=== PATIENT | female | born 1955 | race Caucasian/White ===

== ENCOUNTER → 2016-05-17 | Outpatient (CLI) | payer BC ==
--- NOTE | 2016-05-17 12:56 | P.HPIM ---
History of Present Illness H&P Date: 05/17/16 Chief Complaint: neck and left shoulder pain This is a 60-year-old patient referred by Dr. Stevens for chronic pain in neck pain and left shoulder, denies numbness/tingling in upper extremities. Patient has been taking medications from primary care physician including tramadol, naproxen, Tylenol medications with some relief. Patient denies adverse drug effects from medications. Patient also denies new-onset weakness, bowel/ bladder incontinence, or any other signs or symptoms of cauda equina syndrome. There are no signs of acute intoxication, and no indications of medication diversion or overuse. Patient notes that pain worsens significantly with neck extension, and improves with rest, ice, and medication. Patient has used several types of medications for pain, including NSAIDS, TRAMADOL, ANTIDEPRESSANTS. Patient HAS NOT had surgery. Patient HAS NOT had injections previously. Patient HAS NOT had physical therapy recently. In addition to above, 13-point review of systems is also negative for chest pain , shortness of breath, changes in vision, changes in hearing, new onset weakness , abdominal pain, diarrhea, extreme fatigue, malaise, fever, skin changes, homicidal or suicidal ideation, or bowel or bladder incontinence. Vital Signs: Reviewed in EMR Gen: WDWN, AAOx3, NAD HEENT: NCAT, EOMI, hearing grossly normal Pulm: resp unlabored Abd: soft, NT, ND Neck: supple, trachea midline ROM in flexion cervical spine: reduced ROM in extension cervical spine: reduced Cervical paravertebral tenderness: + L side >> R side Cervical Facet tenderness: +L side >> R side Spurling's: neg bilateral Upper extremity: strength preserved Neuro: CN II-XII grossly intact Past Medical History Past Medical History: Fibromyalgia, Hyperlipidemia, Hypertension History of Any Multi-Drug Resistant Organisms: None Reported Past Surgical History: Cholecystectomy, Hysterectomy Additional Past Surgical History / Comment(s): left breast cyst removal - 1978. Pins in jaw - osteotomy of mandible Past Psychological History: Depression Smoking Status: Never smoker Past Alcohol Use History: None Reported Past Drug Use History: None Reported Medications and Allergies Home Medications Medication Instructions Recorded Confirmed Type Benazepril HCl 40 mg PO DAILY 12/10/14 05/17/16 History Hydrochlorothiazide 25 mg PO DAILY 12/10/14 05/17/16 History Multivitamins, Thera [Theragran] 1 each PO DAILY@1200 12/10/14 05/17/16 History Naproxen Sodium [Aleve] 440 mg PO DAILY 12/10/14 05/17/16 History Simvastatin [Zocor] 20 mg PO HS 12/10/14 05/17/16 History Verapamil HCl [Verapamil ER] 240 mg PO DAILY 12/10/14 05/17/16 History Acetaminophen Tab [Tylenol Tab] 500 mg PO Q6H 05/17/16 05/17/16 History Ascorbic Acid [Vitamin C] 250 mg PO DAILY 05/17/16 05/17/16 History Cholecalciferol [Vitamin D3] 1,000 unit PO DAILY 05/17/16 05/17/16 History Ciprofloxacin HCl [Cipro] 500 mg PO Q12HR 05/17/16 05/17/16 History Cyanocobalamin [Vitamin B-12] 1,000 mcg PO DAILY 05/17/16 05/17/16 History Famotidine [Pepcid] 20 mg PO HS 05/17/16 05/17/16 History Fluticasone Nasal [place] [Flonase 1 spray EA NOSTRIL DAILY 05/17/16 05/17/16 History Nasal [place]] Melatonin 15 mg PO HS 05/17/16 05/17/16 History Menthol [Biofreeze] 1 applic TOPICAL HS 05/17/16 05/17/16 History [place]-3 Fatty Acids/Fish Oil [Fish 2,000 mg PO DAILY 05/17/16 05/17/16 History Oil 1,000 mg Softgel] traMADol HCL [Ultram] 50 mg PO HS PRN 05/17/16 05/17/16 History Allergies Allergy/AdvReac Type Severity Reaction Status Date / Time red dye Allergy Rash/Hives Verified 05/17/16 12:04 Sulfa (Sulfonamide Allergy Rash/Hives Verified 05/17/16 12:04 Antibiotics) Physical Exam Vitals: Vital Signs Temp Pulse Resp BP 05/17/16 12:22 98.2 F 73 16 140/75 Intake and Output 05/16/16 05/17/16 05/17/16 22:59 06:59 14:59 Other: Weight 105.687 kg Patient Weight 05/18/16 06:59 Weight 105.687 kg Results Comments: MRI cervical spine dated 03/03/2016 demonstrates hypertrophic changes of the facets and uncovertebral hypertrophy at essentially every level of the cervical spine. There are posterior disc bulges at the C4-C5 C5-C6 and C6-C7 levels. There is left-sided foraminal encroachment at C4-C5 level with probable nerve root impingement and spinal canal stenosis at this level as well. There is severe spinal canal stenosis at the C5-C6 level and some compression of the thecal sac with the facets at the C6-C7 level. There is also degenerative disc disease throughout the cervical spine. Assessment and Plan (1) Cervical spondylosis without myelopathy Status: Chronic (2) Neural foraminal stenosis of cervical spine Status: Chronic Plan: 1. Explanation: Opioid and psychological risk scores were reviewed. Diagnoses , prognoses, and multiple treatment options including but not limited to physical therapy, interventional therapies, adjuvant medical therapies, narcotic medication therapies, and surgery were discussed with the patient and all questions were answered to the patient's satisfaction. 2. Opioid agreement: no opioids prescribed today 3. Counseling: The patient was counseled extensively on SMOKING CESSATION, BODY MASS INDEX, EXERCISE. Specifically, the patient was instructed regarding the importance of smoking cessation, obesity, and exercise in the context of both chronic pain and overall health. 4. Procedures: left cervical MBB (lower facets if possible given pain's referral to shoulder) 5. Consultations: none 6. Investigations: none 7. Medications: none 8. Disposition: f/u for procedure as scheduled PQRS measures: 1-Patient's medications are documented in the chart. 2-Tobacco use is negative 3-Patient has not had a pneumococcal vaccine. 4-Advanced care planning discussed, patient unable to give. 5-Opioid contract NOT signed with the patient as no opioids prescribed. 6-Pain positive, follow-up visit or procedure scheduled 7-Patient's blood pressure measured and documented, and patient will follow up with the primary care due to hypertension. 8-Patient's weight was measured, and body mass index ABOVE the normal limits, and counseling was done. Patient instructed to follow up with PCP. 9-Patient WAS NOT identified as an unhealthy alcohol user. Time with Patient: Greater than 30
== END | disposition home or self-care (01) ==
CPT/HCPCS: 99211

== ENCOUNTER 2016-05-28 06:45 | Day surgery (SDC) | payer BC ==
[2016-05-23 15:07] VITALS: BMI 39.6
[2016-05-28] MEDS ORDERED: LIDOCAINE 1% 20 ML VIAL (10MG/ML) FOR IV START INTRADERMA ONE (06:57)
[2016-05-28 07:02] VITALS: RESP 16; TEMP 96.2
[2016-05-28] MEDS ORDERED: LACTATED RINGERS 1,000 ML IV ONE (07:06)
[2016-05-28] MEDS ORDERED: MIDAZOLAM 2 MG/2 ML VIAL ONE (08:08)
[2016-05-28] MEDS ORDERED: BUPIVACAINE (PF) 0.5% 30 ML VIAL ONE (08:08)
[2016-05-28] MEDS ORDERED: LACTATED RINGERS 1,000 ML IV SCH (08:15)
--- NOTE | 2016-05-28 08:39 | P.PCN ---
Date of Procedure: 05/28/16 Preoperative Diagnosis: Cervical spondylosis without myelopathy Postoperative Diagnosis: Cervical spondylosis without myelopathy Procedure(s) Performed: Left cervical medial branch block at C4, C5, and C6 levels. Anesthesia: MAC Surgeon: Leah Mendiola Pathology: none sent Condition: stable Disposition: PACU Description of Procedure: The patient was seen in preop holding area consent was obtained then she was brought into the procedure room. The patient's first was placed in the prone position however the lateral view of fluoroscopy did not show the lower levels of her cervical spine because of the shoulders shadowing . The patient then was placed in the supine position and I was able to identify levels C4, C5, and C6 however I was not able to see level C7 because of the patient's body habitus . The target points were the center of the trapezoid shaped articular pillars of C4, C5, and C6. I used 22-gauge 3-1/2 inch Quincke spinal needles for this procedure and after contacting bone at these levels I injected 1 mL of Marcaine 0.5%. I did not give her any steroids or any IV fentanyl for this procedure. Patient tolerated procedure well.
[2016-05-28] MEDS ORDERED: IV FLUID CONTINUATION 1,000 ML IV ONE (08:42)
--- NOTE | 2016-05-28 08:45 | FL ---
EXAMINATION TYPE: FL guided pain mgmt statistic DATE OF EXAM: 05/28/2016 8:39 AM HISTORY: Pain Left Cervical Facet.10 sec fluoro time. 1 Image scanned.
[2016-05-28 09:14] VITALS: BP 120/76; PULSE 74
== END 2016-05-28 09:35 | disposition home or self-care (01) ==
LOC: ORPAIN 06:45
PROVIDERS: ATTEND Anesthesiology
DX: M47.812 Spondylosis without myelopathy or radiculopathy, cervical region (principal); I10 Essential (primary) hypertension; Z88.2 Allergy status to sulfonamides
CPT/HCPCS: 64490; 64491; 64492; J2250

== ENCOUNTER → 2016-06-13 | Outpatient (CLI) | payer BC ==
--- NOTE | 2016-06-14 08:10 | MM ---
Reason for exam: screening (asymptomatic). Last mammogram was performed 1 year ago. History: Patient is postmenopausal. Cancelled Right Mammotome of the right breast, December 19, 2007. Benign cyst aspiration of the left breast, 1978. Took estrogen for 2 years beginning at age 48. Physical Findings: A clinical breast exam by your physician is recommended on an annual basis and results should be correlated with mammographic findings. MG Screening Mammo w CAD Bilateral CC and MLO view(s) were taken. Prior study comparison: June 03, 2015, bilateral MG screening mammo w CAD. November 05, 2011, bilateral digital screening mammo w/CAD. There are scattered fibroglandular densities. No significant changes when compared with prior studies. ASSESSMENT: Benign, BI-RAD 2 RECOMMENDATION: Routine screening mammogram of both breasts in 1 year.
== END | disposition home or self-care (01) ==
LOC: RADMAMWWP 10:15
PROVIDERS: ATTEND Internal Medicine
DX: Z12.31 Encounter for screening mammogram for malignant neoplasm of breast (principal)

== ENCOUNTER 2016-06-21 11:21 | Day surgery (SDC) | payer BC ==
[2016-06-20 11:20] VITALS: BMI 39.6
[~2016-06-21 11:21] MED LIST: LACTATED RINGERS 1,000 ML IV SCH
[2016-06-21 12:00] VITALS: RESP 16; TEMP 98.3
[2016-06-21] MEDS ORDERED: LIDOCAINE 1% 20 ML VIAL (10MG/ML) FOR IV START SQ ONE (12:15)
[2016-06-21] MEDS ORDERED: DEXAMETHASONE SOD PHOS (MDV) 100 MG/10 ML VIAL ONE (12:39)
[2016-06-21] MEDS ORDERED: MIDAZOLAM 2 MG/2 ML VIAL ONE (12:39)
[2016-06-21] MEDS ORDERED: BUPIVACAINE (PF) 0.5% 30 ML VIAL ONE (12:39)
[2016-06-21] MEDS ORDERED: IV FLUID CONTINUATION 600 ML IV ONE (13:13)
--- NOTE | 2016-06-21 13:15 | FL ---
EXAMINATION TYPE: FL guided pain mgmt statistic DATE OF EXAM: 06/21/2016 1:10 PM CLINICAL HISTORY: Neck pain. TECHNIQUE: Fluoroscopy. COMPARISON: None. FINDINGS: Fluoroscopic guidance was provided during pain relief procedure performed by Dr. Vanessa. A total of 25 seconds of fluoroscopic time was utilized during the procedure and two spot images are a cquired. Images acquired shows needle localization at level of the lower cervical spine. IMPRESSION: As Above.
--- NOTE | 2016-06-21 13:18 | P.PCN ---
Date of Procedure: 06/21/16 Surgeon: Romaine Vanessa Pathology: none sent Condition: stable Disposition: PACU Description of Procedure: PREOPERATIVE DIAGNOSIS: Cervical spondylosis without myelopathy, cervicogenic headache. POSTOPERATIVE DIAGNOSIS: same PROCEDURES: Diagnostic left C4, C5, C6 medial branch block and steroid injection , with fluoroscopic guidance ANESTHESIA: Local with 1% lidocaine; conscious sedation EBL: Minimal PROCEDURE INDICATION: This is a patient with neck pain and headaches secondary to cervical arthropathy unresponsive to more conservative treatments. Patient with > 80% relief x 2.5 weeks from first cervical MBB performed by Dr. Mendiola at last visit. No use of anticoagulants. PROCEDURE DESCRIPTION / TECHNIQUE: The patient was seen and identified in the preoperative area. Risks, benefits, complications, and alternatives were discussed with the patient (including but not limited to incomplete pain relief , bleeding, infection, nerve damage, and allergies to medications), the patient agreed to proceed with the procedure and signed the consent after all questions were answered. IV was started. Vital signs remained stable throughout the procedure. Patient was taken to the OR and time out was completed. The patient was placed in the supine position on the procedure table. The lateral cervical area was prepped and draped in the usual sterile fashion. Critical pause was taken. Vital signs were closely monitored during the procedure. Conscious sedation was used during the procedure to decrease patients anxiety. Using cross-table lateral fluoroscopy, the centroid of the trapezoid of left C4 , was identified, marked, and localized with 1% lidocaine. Subsequently, a 25 G spinal needle was advanced guided by fluoroscopy to the centroid of the trapezoid of C43. Needle tip position was confirmed at the centroid of the trapezoid of C4 with anteroposterior fluoroscopy. Subsequently, 1 ml of a combination of 10 mg Decadron and 2 ml of preservative-free Bupivacaine 0.5% was injected after negative aspiration for blood and CSF. Needle was then withdrawn slightly and brought to the centroid of the trapezoid of C5 in a similar fashion. 1 ml of the mixture was injected here after negative aspiration. After this, the needle was similarly withdrawn and brought to the centroid of the trapezoid of C6 and the last 1 ml was injected here. Needle was withdrawn intact, skin was cleansed, and bandages were applied. COMPLICATIONS: No acute complications. COMMENTS: DISPOSITION / PLANS: The patient was placed in a supine position and transferred to the recovery area in a stable condition for observation and was discharged from the recovery room after meeting discharge criteria. Home discharge instructions given to the patient by the staff. The patient was reexamined prior to discharge. The patient will schedule a follow up in the clinic in 2-4 weeks. Patient had excellent relief from first MBB done by Dr. Mendiola without steroids. I decided to use Decadron today to see if I could give the patient more extended relief without doing RFA, which will be challenging due to her very short neck and large body habitus.
[2016-06-21 13:51] VITALS: BP 141/81; PULSE 66
== END 2016-06-21 13:53 | disposition home or self-care (01) ==
LOC: ORPAIN 11:21
PROVIDERS: ATTEND Anesthesiology
DX: M47.812 Spondylosis without myelopathy or radiculopathy, cervical region (principal); R51 Headache
CPT/HCPCS: 64490; 64491; 64492; 99152; J2250; J1100

== ENCOUNTER → 2016-07-23 | Outpatient (CLI) | payer BC ==
[2016-07-23 14:56] VITALS: BP 140/77; PULSE 74; RESP 16; TEMP 98.2
--- NOTE | 2016-07-23 15:33 | P.PN ---
Progress Note - Text This is a 66-year-old old lady with history of fibromyalgia, multiple sites of arthritis and left neck pain due to cervical spondylosis. The patient received 2 cervical medial branch blocks for levels C4, C5, and C6 and she still has very good pain relief after these injections. At this point I would like to postpone doing the radio frequency ablation until her pain comes back or gets worse in intensity and then we can plan on doing the radiofrequency ablation for levels C4, C5, and C6 under fluoroscopic guidance on the left side. For now the patient is to continue using ibuprofen as needed for her pain.
== END ==
LOC: PNWHC3 14:17
PROVIDERS: ATTEND Anesthesiology
DX: M47.812 Spondylosis without myelopathy or radiculopathy, cervical region (principal)
CPT/HCPCS: 99211

== ENCOUNTER → 2017-04-30 | Outpatient (CLI) | payer BC, OTHER ==
--- NOTE | 2017-04-30 14:41 | P.PN ---
Subjective Progress Note Date: 04/30/17 This is follow-up visit for this patient with a history of severe and chronic neck pain secondary to cervical degenerative disc diseases , cervical spondylosis with facet arthropathy, we have done a couple medial branch block on the left side cervical area and she had a good result , able to have radiofrequency ablation of the left side medial branch cervical area , could not do the radiofrequency because not able to visualize C5 or C6 vertebra , and the procedure was converted to cervical epidural steroid injections . Physical Examinations : 1-Constitutiona : Cooperative , not in acute distress . 2-HEENT : nech ; supple , no Lymphadenopathy , no Thyromegaly , normal thyroid size . eyes : no ptosis , no icterus, no photophobia . ENT : normal of hearing , normal oropharynx , no Thrush . 3- Respiratory : Chest clear to auscultations Bilaterally , no wheezing , no Rhonchi . 4- Cardiovascular : regular rate and rhythem , S1 , S2 , no S3 , no S4. 5- Gastrointestinal : abdomen soft no tenderness , bowel sounds positive all four quadrents , no organomegally . 6- Genitourinary : Defferred . 7- neurologic : Cranial nerve II to XII intact , no focal neurological deffecit . 8-psychatric : alert , oriented X 3 , appropriate affect , intact judgment and insight . 9-Lymphatic : no Lymphadenopathy . 10- musculoskeltal : exams of the cervical spine = motor strength normal bilateral upper extremities facet loading test cervical area positive. Assessment and plan = Cervical spondylosis with cervical facet arthropathy without myelopathy and cervical degenerative disc disease ,cervical foraminal stenosis she had good results after the diagnostic medial branch block but I could not proceed with the radiofrequency ablation of the medial branches , it would be good candidate to have a trial date radiofrequency ablation of the medial branch cervical ,to be schedualed with one my partners that they have done the procedure for her in the past , Patient reported that her pain is not very bad now and she is concerned about the copayment for this reason she will schedule the procedure in the future when her pain intensity increased and she will be scheduled to have radiofrequency ablation of the medial branch cervical area with Dr. Vanessa or with Dr. Mendiola Objective - Vital Signs Vital signs: Vital Signs Temp Pulse 100 04/30/17 13:32 Resp 18 04/30/17 13:32 BP 127/63 04/30/17 13:32 Pulse Ox 96 04/30/17 13:32 Intake & Output 04/29/17 04/30/17 04/30/17 18:59 06:59 18:59 Weight 106.141 kg
[2017-05-01 23:05] VITALS: BP 127/63; PULSE 100; RESP 18
== END | disposition home or self-care (01) ==
LOC: PNWHC3 13:14
PROVIDERS: ATTEND Specialist
DX: G89.29 Other chronic pain (principal); M99.71 Connective tissue and disc stenosis of intervertebral foramina of cervical region; M50.30 Other cervical disc degeneration, unspecified cervical region; M47.812 Spondylosis without myelopathy or radiculopathy, cervical region; M46.82 Other specified inflammatory spondylopathies, cervical region
CPT/HCPCS: 99211

== ENCOUNTER → 2017-05-16 | Outpatient (CLI) | payer OTHER ==
--- NOTE | 2017-05-17 09:29 | ECHOF ---
Referral Reason:I50 Heart failure MEASUREMENTS -------- HEIGHT: 162.6 cm WEIGHT: 108.0 kg BP: LAESV Index (A-L): 11.87 ml/m Ao Diam: 3.4 cm (2.0 - 3.7) AV Cusp: 1.9 cm (1.5 - 2.6) LA Diam: 3.7 cm (2.7 - 3.8) MV E Herb: 0.63 m/s MV DecT: 288 ms MV A Herb: 0.73 m/s MV E/A Ratio: 0.85 FINDINGS -------- Sinus rhythm. This was a technically difficult study with suboptimal views. The left ventricular size is normal. Overall left ventricular systolic function is normal with, an EF between 55 - 60 %. The right ventricle is normal in size and function. Normal LA size by volume 22+/-6 ml/m2. The right atrium is normal in size. 1.5mg of Definity was utilized for enhancement of images The aortic valve is trileaflet, and appears structurally normal. No aortic stenosis or regurgitation. The mitral valve leaflets are mildly thickened. There is trace to mild mitral regurgitation. Trace tricuspid regurgitation present. Right ventricular systolic pressure is normal at < 35 mmHg. There is no evidence of pulmonary hypertension. The pulmonic valve was not well visualized. The aortic root size is normal. Normal inferior vena cava with normal inspiratory collapse consistent with estimated right atrial pre ssure of 5 mmHg. The pericardium is normal. There is no pericardial effusion. CONCLUSIONS -------- 1. Sinus rhythm. 2. This was a technically difficult study with suboptimal views. 3. The left ventricular size is normal. 4. Overall left ventricular systolic function is normal with, an EF between 55 - 60 %. 5. Normal LA size by volume 22+/-6 ml/m2. 6. 1.5mg of Definity was utilized for enhancement of images 7. The aortic valve is trileaflet, and appears structurally normal. No aortic stenosis or regurgitati on. 8. The mitral valve leaflets are mildly thickened. 9. There is trace to mild mitral regurgitation. 10. Trace tricuspid regurgitation present. 11. Right ventricular systolic pressure is normal at < 35 mmHg. 12. There is no evidence of pulmonary hypertension. 13. The pulmonic valve was not well visualized. 14. The aortic root size is normal. 15. There is no pericardial effusion. [employer]ER [employer]: Dustin Spann RDCS
== END | disposition home or self-care (01) ==
LOC: RADECHMAIN 15:40
PROVIDERS: ATTEND Internal Medicine
DX: I08.1 Rheumatic disorders of both mitral and tricuspid valves (principal); I50.9 Heart failure, unspecified
CPT/HCPCS: 93306

== ENCOUNTER → 2017-10-31 | Outpatient (CLI) | payer OTHER ==
--- NOTE | 2017-11-04 10:29 | MM ---
Reason for exam: screening (asymptomatic). Last mammogram was performed 1 year and 5 months ago. History: Patient is postmenopausal. Cancelled Right Mammotome of the right breast, December 19, 2007. Benign cyst aspiration of the left breast, 1978. Took estrogen for 2 years beginning at age 48. Physical Findings: A clinical breast exam by your physician is recommended on an annual basis and results should be correlated with mammographic findings. MG 3D Screening Mammo W/Cad Bilateral CC, MLO, and CV view(s) were taken. Technologist: RT Bronson (R)(M) Prior study comparison: June 13, 2016, bilateral MG screening mammo w CAD. June 03, 2015, bilateral MG screening mammo w CAD. There are scattered fibroglandular densities. There is chronic nodularity in the left breast. Stable medial right breast asymmetric density. No significant changes when compared with prior studies. ASSESSMENT: Negative, BI-RAD 1 RECOMMENDATION: Routine screening mammogram of both breasts in 1 year.
== END | disposition home or self-care (01) ==
LOC: RADMAMWWP 09:12
PROVIDERS: ATTEND Internal Medicine
DX: Z12.31 Encounter for screening mammogram for malignant neoplasm of breast (principal)
CPT/HCPCS: 77063; 77067

== ENCOUNTER 2018-04-09 06:11 | Day surgery (SDC) | payer OTHER ==
[2018-04-07 16:36] VITALS: BMI 40.3
[2018-04-09 06:43] VITALS: TEMP 97.6
[2018-04-09] MEDS ORDERED: LACTATED RINGERS 1,000 ML IV ONE (06:54)
[2018-04-09] MEDS ORDERED: SODIUM CHLORIDE 0.9% 500 ML 500 ML IV SCH (07:00)
[2018-04-09] MEDS ORDERED: IV FLUID CONTINUATION 1,000 ML IV ONE ×2 (07:24)
[2018-04-09 07:27] VITALS: RESP 16
--- NOTE | 2018-04-09 07:27 | P.PCN ---
Date of Procedure: 04/09/18 Surgeon: Dada Cruz Description of Procedure: PREOPERATIVE DIAGNOSIS: Cervical radiculopathy Cervical degenerative disc disease POSTOPERATIVE DIAGNOSIS: Cervical radiculopathy Cervical degenerative disc disease PROCEDURE Cervical Epidural steroid injection under fluoroscopic guidance at the C7-T1 interspace. ANESTHESIA: Local with 1% lidocaine 3 ml and IV sedation with Versed 2 mg EBL: Minimal PROCEDURE INDICATION: The patient with cervical radicular symptoms unresponsive to conservative treatment. She is undergone one previous cervical epidural steroid injection reported that this helped her pain significant only. She has pain in her neck as well as down her right arm. PROCEDURE DESCRIPTION / TECHNIQUE: The patient was seen and identified in the preoperative area. Risks, benefits , complications including but not limited to infections ,bleeding ,allergic reaction to the medications ,nerve damage and incomplete pain relief, and alternatives were discussed with the patient. The patient agreed to proceed with the procedure and signed the consent. IV was started, and vital signs were stable. Patient was taken to the OR and time out was completed. The patient was placed in the prone position on procedure table and a pillow was placed under the chest area.. The cervical area was prepped and draped in the usual sterile fashion. Conscious sedation was used during the procedure to decrease patient s anxiety. Vital signs was monitered during the entire procedure. Using anterior-posterior fluoroscopy, the C7-T1 interlaminar space was identified and the skin over this site was marked and then infiltrated with 1% lidocaine subcutaneously. Subsequently, a 20-gauge Tuohy epidural needle was inserted and advanced toward the epidural space using the loss of resistance technique and guided by AP and lateral fluoroscopy. The correct needle position in the epidural space was verified with the injection of contrast and observing an excellent epidurogram with the epidural spread of the dye, after negative aspiration for blood and CSF and in the absence of paresthesias. Again after negative aspiration, a 4 ml mixture containing 20 mg of Dexamethasone was injected. Needle was withdrawn intact, skin was cleansed, and bandages were applied. COMPLICATIONS: None DISPOSITION / PLANS: The patient was placed in a supine position and transferred to the recovery area in a stable condition for observation. There was no evidence of lower extremity motor or sensory deficit after the procedure. Patient was discharged from the recovery room after meeting discharge criteria. Home discharge instructions were given to the patient by the staff. The patient was reexamined prior to discharge. She will follow-up for her third cervical epidural steroid injection on an as-needed basis.
[2018-04-09 07:39] VITALS: BP 130/78; PULSE 74
--- NOTE | 2018-04-09 08:52 | FL ---
EXAMINATION TYPE: FL guided pain mgmt statistic DATE OF EXAM: 04/09/2018 COMPARISON: NONE HISTORY: Neck pain. Fluoroscopy documentation. TECHNIQUE: Fluoroscopy. FINDINGS/IMPRESSION: Fluoroscopic guidance was provided during procedure performed by Dr. Cruz. A total of 2 seconds of fluoroscopic time was utilized during the procedure and 1 spot images was acqu ired demonstrating localization of the cervical spine.
== END 2018-04-09 08:05 | disposition home or self-care (01) ==
LOC: ORPAIN 06:11
PROVIDERS: ATTEND Pain Medicine Pain Medicine
DX: M50.10 Cervical disc disorder with radiculopathy, unspecified cervical region (principal); I10 Essential (primary) hypertension; M79.7 Fibromyalgia; M19.90 Unspecified osteoarthritis, unspecified site; Z79.1 Long term (current) use of non-steroidal anti-inflammatories (NSAID); Z88.2 Allergy status to sulfonamides
CPT/HCPCS: 62321; J2250; J1100; 99152

== ENCOUNTER → 2018-05-27 | Outpatient (CLI) | payer BC, OTHER ==
[2018-05-27 12:15] VITALS: BP 170/82; PULSE 94; RESP 16
--- NOTE | 2018-05-27 12:40 | P.PN ---
Subjective Progress Note Date: 05/27/18 Principal diagnosis: Cervical spondylosis without myelopathy This is a 62-year-old lady with chronic history of neck pain. The patient had 2 cervical epidural steroid injection recently which improved her left shoulder blade pain however she did report that a year ago she had cervical medial branch block which gave her better improvements in her neck pain and lasted for about one year even though it was a diagnostic procedure not a therapeutic one. Her pain gets worse by bright rotation of the cervical spine. She feels this pain on the left side of her cervical spine with radiation to the left shoulder area. By physical exam she has tenderness in the left cervical paravertebral musculature. Neuro exam of the upper extremities showed normal and symmetrical biceps reflexes but absent triceps reflexes bilaterally. She has normal muscle strength in the upper extremities. Since the patient had better results after the diagnostic cervical medial branch block which she had about a year ago I will schedule her for left cervical medial branch block under fluoroscopic guidance for levels C4, C5, and C6. The patient would hold her ibuprofen for 24 hours before the procedure The procedure will be done in the prone position at least twice to rule out false positive results. The patient's questions were answered and she was agreeable to the above mentioned procedure. Objective - Vital Signs Vital signs: Vital Signs Temp Pulse 94 05/27/18 12:11 Resp 16 05/27/18 12:11 BP 170/82 05/27/18 12:11 Pulse Ox 92 L 05/27/18 12:11 Intake & Output 05/26/18 05/27/18 05/27/18 18:59 06:59 18:59 Weight 108.862 kg
== END ==
LOC: PNWHC3 11:50
PROVIDERS: ATTEND Anesthesiology
DX: G89.29 Other chronic pain (principal); M54.2 Cervicalgia; Z79.891 Long term (current) use of opiate analgesic; Z79.899 Other long term (current) drug therapy
CPT/HCPCS: 99211

== ENCOUNTER 2018-06-23 07:35 | Day surgery (SDC) | payer BC ==
[2018-06-19 15:53] VITALS: BMI 41.1
[~2018-06-23 07:35] MED LIST changes: -LACTATED RINGERS 1,000 ML IV SCH; +SODIUM CHLORIDE 0.9% 500 ML 500 ML IV SCH
[2018-06-23 08:12] VITALS: RESP 16; TEMP 96.9
[2018-06-23] MEDS ORDERED: LACTATED RINGERS 1,000 ML IV ONE (08:12)
[2018-06-23 08:20] LABS: Glucose,Whole Blood 111 mg/dL (75-99)
--- NOTE | 2018-06-23 09:19 | P.PCN ---
Date of Procedure: 06/23/18 Surgeon: Leah Mendiola Pathology: none sent Condition: stable Disposition: PACU Description of Procedure: PREOPERATIVE DIAGNOSIS: Cervical Spondylosis with Facet Arthropathy.without myelopathy POSTOPERATIVE DIAGNOSIS: Cervical Spondylosis Facet Arthropathy. Without myelopathy PROCEDURES: Diagnostic Left C3,4,5 medial branchs block with fluoroscopic guidance ANESTHESIA: Local with 1% lidocaine; IV sedation with Versed. EBL: Minimal PROCEDURE INDICATION: The patient with neck pain secondary to cervical arthropathy unresponsive to more conservative treatments. PROCEDURE DESCRIPTION / TECHNIQUE: The patient was seen and identified in the preoperative area. Risks, benefits, complications, and alternatives were discussed with the patient, the patient agreed to proceed with the procedure and signed the consent. IV was started. Vital signs remained stable throughout the procedure. Patient was taken to the OR and time out was completed. The patient was placed in the supine position on the procedure table. . The cervical area was prepped with chloraprep and draped in the usual sterile fashion. Critical pause was taken. Vital signs were closely monitored during the procedure. Conscious sedation was used during the procedure to decrease patients anxiety. I was not able to identify level C6 and C7 due to the patient's body habitus. Using cross-table lateral fluoroscopy, the center of the trapezoid of C3,4,and C5 was identified, marked, and localized with 1% lidocaine 1 ml at each level for skin and Sub Q infiltrations . Subsequently, a 25 G 3.5 inch spinal needle was advanced guided by fluoroscopy to the center of the trapezoid of C3,4,5 . Subsequently, 0.5 ml of preservative-free Bupivacaine 0.5% was injected at each level after negative aspiration for blood and CSF. No steroids were used for this procedure and no IV fentanyl either. COMPLICATIONS: No acute complications. COMMENTS: DISPOSITION / PLANS: The patient was placed in a supine position and transferred to the recovery area in a stable condition for observation and was discharged from the recovery room after meeting discharge criteria. Home discharge instructions given to the patient by the staff. The patient was reexamined prior to discharge. The patient will schedule a follow up in the clinic in 2-4 weeks.
--- NOTE | 2018-06-23 09:27 | FL ---
EXAMINATION TYPE: FL guided pain mgmt statistic DATE OF EXAM: 06/23/2018 CLINICAL HISTORY: Neck pain. TECHNIQUE: Fluoroscopy. COMPARISON: None. FINDINGS: Fluoroscopic guidance was provided during pain relief procedure performed by Dr. Mendiola . A total of 21 seconds of fluoroscopic time was utilized during the procedure and 3 spot images are acquired. Images acquired shows needle localization at few levels in the upper to mid cervical spine . IMPRESSION: As Above.
[2018-06-23 09:36] VITALS: PULSE 78
[2018-06-23 09:41] VITALS: BP 141/78
[2018-06-23] MEDS ORDERED: IV FLUID CONTINUATION 1,000 ML IV ONE (09:42)
--- NOTE | 2018-06-25 16:04 | CDI ---
Outpatient Documentation Clarification Form Date: 06/25/18 CDS/Pasteurizer Helper Name: Lidia Palacios Phone: If any questions, call Kiara Spann Talent Acquisition Relationship Manager at [phone] Patient Name: Genesis Red Admit Date: 06/23/18 Discharge Date: 06/23/18 ATTENTION: The [facility] Coding Staff appreciate your assistance in clarifying documentation. Please respond to the clarification below the line at the bottom and electronically sign. The [facility] Coding staff will review the response and follow-up if needed. Please note: Queries are made part of the Legal Health Record. If you have any questions, please contact the Talent Acquisition Relationship Manager. Dear Dr. Mendiola, How many levels and which levels were injected? Levels must be documented in the following fashion: C3-C4, C4-C5, for example. C3,4,5 could be interpreted to mean anywhere from 2 to 4 different spinal levels. Thank you for your kind consideration. MTDD
== END 2018-06-23 09:52 | disposition home or self-care (01) ==
LOC: ORPAIN 07:35
PROVIDERS: ATTEND Anesthesiology
DX: M47.812 Spondylosis without myelopathy or radiculopathy, cervical region (principal)
CPT/HCPCS: 64490; 64491; 64492; J2250; 99152

== ENCOUNTER → 2018-10-10 | Outpatient (CLI) | payer BC ==
--- NOTE | 2018-10-10 12:04 | MR ---
EXAMINATION TYPE: MR lumbar spine wo con DATE OF EXAM: 10/10/2018 COMPARISON: Plain film dated 04/18/2015 HISTORY: Low back pain TECHNIQUE: Multiplanar, multisequence images of the lumbar spine were acquired. L1-L2: Mild posterior disc bulge causes slight anterior mass effect on the thecal sac, disc extends c ircumferentially to cause some minimal encroachment on the foramina. L2-L3: Posterior broad-based disc bulge somewhat eccentric towards the right causing some anterolater al mass effect on the thecal sac. Circumferential extension of disc material encroaches minimally on the right neural foramen. L3-L4: Minimal anterolisthesis grade 1. Facet arthropathy with hypertrophic changes of the facets not ed. No significant central stenosis or foraminal encroachment. L4-L5: Facet arthropathy with hypertrophy ligamentum flavum is noted. No significant central stenosis or foraminal encroachment. No disc herniation. L5-S1: There is some facet arthropathy changes. No significant central stenosis. No disc herniation. No definite foraminal encroachment. Lumbar segments are intact. No paraspinal masses are identified. Conus medullaris has a normal appe arance. Lumbar vertebral bodies show preserved height. There is mild multilevel spondylosis. Minimal endplate discogenic marrow signal changes are present. Some loss of disc signal and disc height is co mpatible with mild desiccation, degenerative disc disease greatest at L1 to greater than L3-4. IMPRESSION: Degenerative disc disease, facet arthropathy. Disc bulge present at L1-2 as described.
== END | disposition home or self-care (01) ==
LOC: RADMRIMAIN 08:34
PROVIDERS: ATTEND Internal Medicine
DX: M51.36 Other intervertebral disc degeneration, lumbar region (principal); M47.896 Other spondylosis, lumbar region; M51.86 Other intervertebral disc disorders, lumbar region
CPT/HCPCS: 72148

== ENCOUNTER → 2018-11-27 | Outpatient (CLI) | payer BC ==
--- NOTE | 2018-11-28 15:04 | MM ---
Reason for exam: screening (asymptomatic). Last mammogram was performed 1 year and 1 month ago. History: Patient is postmenopausal. Cancelled Right Mammotome of the right breast, December 19, 2007. Benign cyst aspiration of the left breast, 1978. Took estrogen for 2 years beginning at age 48. Physical Findings: A clinical breast exam by your physician is recommended on an annual basis and results should be correlated with mammographic findings. MG 3D Screening Mammo W/Cad Bilateral CC and MLO view(s) were taken. XCCL view(s) were taken of the right breast. Prior study comparison: October 31, 2017, bilateral MG 3d screening mammo w/cad. June 13, 2016, bilateral MG screening mammo w CAD. The breast tissue is heterogeneously dense. This may lower the sensitivity of mammography. Benign appearing bilateral calcifications. Left calcified axillary lymph nodes are stable back to 2016. ASSESSMENT: Benign, BI-RAD 2 RECOMMENDATION: Routine screening mammogram of both breasts in 1 year.
== END | disposition home or self-care (01) ==
LOC: RADMAMWWP 14:27
PROVIDERS: ATTEND Internal Medicine
DX: Z12.31 Encounter for screening mammogram for malignant neoplasm of breast (principal)
CPT/HCPCS: 77063; 77067

== ENCOUNTER 2018-12-22 09:56 | Day surgery (SDC) | payer BC ==
[2018-12-19 09:25] VITALS: BMI 41.8
[~2018-12-22 09:56] MED LIST changes: +LACTATED RINGERS 1,000 ML IV SCH; +LIDOCAINE 1% 20 ML VIAL (10MG/ML) FOR IV START INTRADERMA PRN; -SODIUM CHLORIDE 0.9% 500 ML 500 ML IV SCH
[2018-12-22 10:31] VITALS: TEMP 98.2
[2018-12-22] MEDS ORDERED: MIDAZOLAM 2 MG/2 ML VIAL ONE (11:16)
[2018-12-22] MEDS ORDERED: LIDOCAINE 1% INJ 10MG/ML (20 ML MDV) ONE (11:16)
[2018-12-22] MEDS ORDERED: fentaNYL (PF) 50 MCG/ML 2 ML AMP ONE (11:16)
[2018-12-22] MEDS ORDERED: PROPOFOL 10 MG/ML 20 ML VIAL IV ONE (11:16)
[2018-12-22] MEDS ORDERED: NALOXONE 0.4 MG/ML 1 ML VIAL IV PRN (11:27)
--- NOTE | 2018-12-22 11:27 | P.GSHP ---
History of Present Illness H&P Date: 12/22/18 Chief Complaint: Change in bowel habits Patient here today for colonoscopy. Last colonoscopy 5 years ago. Over the last year or so has had lower abdominal pain with cramps. Pain is mostly left lower. No imaging has been performed. Denies rectal bleeding. Increasing con stipation. Past Medical History Past Medical History: Fibromyalgia, GERD/Reflux, Hyperlipidemia, Hypertension, Musculoskeletal Disorder, Osteoarthritis (OA) Additional Past Medical History / Comment(s): Abdominal pain, hx of LOWER BACK, LT NECK/SHOULDER PAIN History of Any Multi-Drug Resistant Organisms: None Reported Past Surgical History: Cholecystectomy, Hysterectomy Additional Past Surgical History / Comment(s): left breast cyst removal. Pins in jaw - osteotomy of mandible. PAIN PROC in past Past Anesthesia/Blood Transfusion Reactions: No Reported Reaction Additional Past Anesthesia/Blood Transfusion Reaction / Comment(s): DAUGHTER HAD PROB COMING OUT AFTER GASTRIC BYPASS. Smoking Status: Never smoker - Past Family History Mother Family Medical History: No Reported History Medications and Allergies Home Medications Medication Instructions Recorded Confirmed Type Benazepril HCl 40 mg PO DAILY 12/10/14 12/19/18 History Hydrochlorothiazide 25 mg PO DAILY 12/10/14 12/22/18 History Verapamil HCl [Verapamil ER] 240 mg PO DAILY 12/10/14 12/19/18 History Acetaminophen Tab [Tylenol Tab] 500 mg PO Q6H PRN 05/17/16 12/22/18 History Famotidine [Pepcid] 20 - 40 mg PO HS PRN 05/17/16 12/22/18 History Melatonin 15 mg PO HS PRN 05/17/16 12/22/18 History Atorvastatin [Lipitor] 40 mg PO HS 03/25/18 12/22/18 History HYDROcodone/APAP 5-325MG [[place] 1 tab PO Q6HR PRN 12/19/18 12/22/18 History 5-325] Hemp Oil 0.75 ml PO DAILY 12/19/18 History Loratadine [Claritin] 10 mg PO HS 12/19/18 12/22/18 History Allergies Allergy/AdvReac Type Severity Reaction Status Date / Time red dye Allergy Rash/Hives Verified 12/19/18 09:17 Sulfa (Sulfonamide Allergy Rash/Hives Verified 12/19/18 09:17 Antibiotics) Surgical - Exam Vital Signs Temp Pulse Resp BP Pulse Ox 98.2 F 98 16 137/87 95 12/22/18 10:30 12/22/18 10:30 12/22/18 10:30 12/22/18 10:30 12/22/18 10:30 Physical exam: General: Well-developed, well-nourished HEENT: Normocephalic, sclerae nonicteric Abdomen: Nontender, nondistended Extremities: No edema Neuro: Alert and oriented Assessment and Plan (1) Change in bowel habits Narrative/Plan: Will proceed with colonoscopy at this time Current Visit: Yes Status: Acute Code(s): R19.4 - CHANGE IN BOWEL HABIT SNOMED Code(s): 397356249
--- NOTE | 2018-12-22 11:45 | P.PCN ---
Date of Procedure: 12/22/18 Procedure(s) Performed: PREOPERATIVE DIAGNOSIS: Change in bowel habits POSTOPERATIVE DIAGNOSIS: Mild colitis PROCEDURE: Colonoscopy with biopsy ANESTHESIA: MAC SURGEON: Walker Villa M.D. SPECIMENS: Descending colon colitis, colitis random ENDOSCOPIC PROCEDURE: The patient was placed on the endoscopy table in the left decubitus position. The Olympus colonoscope was inserted into the anus and passed under direct visualization to the base of the cecum. The appendiceal orifice was visualized. From that point the scope was slowly withdrawn inspecting all surfaces carefully. There were no neoplastic inflammatory or polypoid lesions throughout the cecum, ascending, or transverse colon. In the descending colon at about 60 cm there was a single small area of erythema with a central ulceration. This did not appear to be a diverticulum. A biopsy was taken labeled colitis. There were a few areas in the remainder of the colon where there was mild erythema noted. No definite diverticular orifices were seen. Random biopsies of the colon took place. No additional ulcerations were seen. Digital rectal examination was normal. The patient was taken to the recovery room in stable condition per anesthesia guidelines. RECOMMENDATIONS: Await biopsy results. If symptoms persist recommend CT abdomen and pelvis.
[2018-12-22 11:48] VITALS: RESP 18
[2018-12-22 12:04] VITALS: BP 122/70; PULSE 70
== END 2018-12-22 12:37 | disposition home or self-care (01) ==
LOC: ORWHC2ENDO 09:56
PROVIDERS: ATTEND Surgery
DX: K52.9 Noninfective gastroenteritis and colitis, unspecified (principal); Z86.010 Personal history of colon polyps; K59.00 Constipation, unspecified; K21.9 Gastro-esophageal reflux disease without esophagitis; I10 Essential (primary) hypertension; M79.7 Fibromyalgia; E78.5 Hyperlipidemia, unspecified; M19.90 Unspecified osteoarthritis, unspecified site; Z90.49 Acquired absence of other specified parts of digestive tract; Z90.710 Acquired absence of both cervix and uterus; Z79.891 Long term (current) use of opiate analgesic; Z79.890 Hormone replacement therapy; Z79.899 Other long term (current) drug therapy; Z88.2 Allergy status to sulfonamides; Z91.048 Other nonmedicinal substance allergy status
CPT/HCPCS: 45380; 88305; J2250; J2001; J3010; J2704

== ENCOUNTER → 2019-01-31 | Outpatient (CLI) | payer BC ==
--- NOTE | 2019-01-31 15:47 | CT ---
EXAMINATION TYPE: CT abdomen pelvis w con DATE OF EXAM: 01/31/2019 COMPARISON: HISTORY: Abdominal pain CT DLP: 2745.8 mGycm Automated exposure control for dose reduction was used. TECHNIQUE: Helical acquisition of images was performed from the lung bases through the pelvis. None CONTRAST: Performed with Oral Contrast and with IV Contrast, patient injected with 60 mL of Isovue 300. FINDINGS: Lung bases show subsegmental atelectasis. There is no pleural effusion. Heart size is normal. There i s no pericardial effusion. Liver spleen pancreas appear normal. There are clips from cholecystectomy. Bile ducts are not dilated . Stomach appears normal. There is no adrenal mass. Kidneys show satisfactory contrast opacification. There is no hydronephrosi s. Ureters are not dilated. There is no retroperitoneal adenopathy. Bladder distends smoothly. There is no inguinal hernia. There is no mesenteric edema. There is no ascites or free air. Appendix appears normal. There is no s ign of a bowel obstruction. Lumbar spine is intact. IMPRESSION: NEGATIVE CT SCAN ABDOMEN AND PELVIS. NORMAL APPENDIX. MINIMAL SCARRING OR SUBSEGMENTAL ATELECTASIS RI GHT LUNG BASE.
== END ==
LOC: RADCTMAIN 12:54
PROVIDERS: ATTEND Surgery
DX: R10.84 Generalized abdominal pain (principal); R91.8 Other nonspecific abnormal finding of lung field
CPT/HCPCS: 74177; Q9967 ×2